=== PATIENT | male | born 1980 | race Two or more races ===

== ENCOUNTER 2016-06-22 01:41 | Emergency (ER) | payer SELFPAY ==
[~2016-06-22] VITALS: Ht 195.6 cm; Wt 81.6 kg
[2016-06-22 01:46] VITALS: BP 131/73
== END 2016-06-22 02:02 | disposition home or self-care (01) ==
LOC: ER 01:45
DX: M54.5 Low back pain (principal); G89.29 Other chronic pain; I10 Essential (primary) hypertension
CPT/HCPCS: A4606; Z7502; Z7610